=== PATIENT | female | born 1980 | race Caucasian/White ===

== ENCOUNTER 2016-10-16 03:18 | Inpatient (IN) | payer MEDICAID ==
[~2016-10-16] VITALS: Ht 162.6 cm; Wt 68.9 kg
--- NOTE | 2016-10-16 04:02 | NUR ---
PT PRESENTS TO ED WITH C/O EPIGASTRIC PAIN 03/11. PT STATES PAIN BEGAN AROUND 0100 THIS MORNING. PT REPORTS N/V, DENIES ANY DIARRHEA OR CONSTIPATION. PT REPORTS HX OF GALLSTONES X1 YR AGO. PT DENIES ANY FEVERS. RESPIRATIONS EVEN AND UNLABORED. NO ACUTE DISTRESS NOTED. BED IN LOW POSITION. CALL LIGHT WITHIN REACH.
[2016-10-16 04:12] LABS: BASOPHIL % 0.4 % (0-2); PLATELET COUNT 400 x10^3mcL (130-400); RED CELL DISTRIBUTION WIDTH 12.2 % (11.5-14.5)
--- NOTE | 2016-10-16 04:19 | NUR ---
PT UNABLE TO PROVIDE URINE SAMPLE AT THIS TIME.
[2016-10-16 04:28] LABS: ALBUMIN 3.9 g/dL (3.4-5.0); ALKALINE PHOSPHATASE 70 U/L (46-116); ALT/SGPT 22 U/L (14-59); AST/SGOT 16 U/L (15-37); BILIRUBIN TOTAL 0.36 mg/dL (0.20-1.00); CALCIUM 8.9 mg/dL (8.5-10.1); CARBON DIOXIDE 24.5 mmol/L (21-32); CHLORIDE SERUM 104 mmol/L (98-107); CREATININE SERUM 0.6 mg/dL (0.6-1.0); GFR1 > 60 mL/min; GLUCOSE SERUM 116 mg/dL (74-106); LIPASE 162 IU/L (73-393); SODIUM SERUM 138 mmol/L (136-145); TOTAL PROTEIN, SERUM 8.2 g/dL (6.4-8.2)
[2016-10-16 04:31] LABS: POTASSIUM SERUM 2.7 mmol/L (3.5-5.1)
--- NOTE | 2016-10-16 05:10 | NUR ---
PT C/O PAIN 03/11, NOTIFIED. WILL MEDICATE PER ORDERS.
[2016-10-16 05:55] LABS: T3 TOTAL 1.51 ng/mL
[2016-10-16 06:03] LABS: MAGNESIUM 1.6 mg/dL (1.8-2.4); PHOSPHOROUS 2.9 mg/dL (2.5-4.9)
[2016-10-16 06:06] LABS: FREE T4 1.37 ng/dL (0.76-1.46); FREE THYROXINE INDEX 3.3 ug/dL (1.4-4.5); T4(THYROXINE) 9.8 ug/dL (4.7-13.3)
[2016-10-16 06:08] LABS: CHOLESTEROL/HDL RATIO 3.2
[2016-10-16 06:47] VITALS: Ht 162.6 cm; Wt 68.9 kg
--- NOTE | 2016-10-16 06:51 | NUR ---
REPORT GIVEN TO ANITA LARRY.
--- NOTE | 2016-10-16 07:19 | NUR ---
RECEIVED FROM ER, TRANSPORTED VIA [facility]. AWAKE AND ALERT, ORIENTED TO NAME, PLACE, TIME AND SITUATION. SPEECH CLEAR AND APPROPRIATE. WALKED WITH STEADY GAIT INTO ROOM FROM HALLWAY. WITH IV FLAGYL FROM ER, ABOUT 40ML LEFT IN BAG. PLACED IN INFUSION PUMP, REGULATED AT 50ML/HR. ON TELE #31, SINUS RHYTHM, HR 65/MIN. VITAL SIGNS TAKEN. BP 120/74, NC 69, RR 18/MIN, O2 SAT 98% ON ROOM AIR, TEMP 97.5F, DENIES HAVING PAIN AT THIS TIME. HOB ELEVATED 30 DEG. ENDORSED TO NURSE GENA.
--- NOTE | 2016-10-16 07:30 | NUR ---
AAOX4 ABLE TO VERBALIZE NEEDS WITH CLEAR SPEECH, C/O N&V, ABD PAIN 3/10, ACTIVE BOWEL SOUNDS X4 QUADS, ABD ROUND, TENDER TO TOUCH, RECEIVED PAIN MED IN ER, WILL CONTINUE TO MONITOR CLOSELY FOR ADEQUATE PAIN CONTROL, IV AT LAC INFUSING NS AT 100ML/HR, IV AT RAC [place]PL[place], REORIENTED TO CALL LIGHT AND ROOM, WILL CONTINUE TO PROVIDE CARE.
[2016-10-16 09:48] VITALS: BP 120/74
[2016-10-16 10:15] VITALS: BP 120/74
--- NOTE | 2016-10-16 10:28 | NUR ---
REPORT GIVEN TO KAY RN IN OR, PT TRANSFERRED TO OR VIA [facility], CONSENTS AND CHECK LIST COMPLETED.
[2016-10-16 13:20] VITALS: BP 108/68
--- NOTE | 2016-10-16 13:23 | NUR ---
PT TRANSFERRED FROM OR VIA [facility] BY KAY LARRY, PT IS AWAKE AND ALERT, ABLE TO VERBALIZE NEEDS, ABLE TO TRANSFER FROM GURSALEM TO BED, C/O FEELING NAUSEUS, VOMITTED 150ML OF GREEN FLUID WITH PINK TINGED SALIVA, ASSISTED TO SAFE AND COMFORTABLE POSITION, CURRENT VS WNL, ABD SOFT, HYPOACTIVE, X4 SX INCISIONS COVERED WITH CLEAN AND DRY BANDAID, NO ACTIVE BLEEDING OR DRAINAGE NOTED, WILL ADMIN ANTIEMETIC ORDERED, CALL LIGHT WITHIN REACH, WILL CONTINUE TO PROVIDE CARE.
[2016-10-16 14:36] VITALS: BP 102/64
--- NOTE | 2016-10-16 16:58 | NUR ---
C/O VILLEGAS 10/09, ADMINISTERED PAIN MED ORDERED, REPORTS ABD PAIN 2/, CONTROLLED AT THIS TIME, CALL LIGHT WITHIN REACH.
--- NOTE | 2016-10-16 17:08 | NUR ---
LATE ENTRY FOR 1255: KAY RN REPORTS LAP JACKIE COMPLETED, PT RECEIVED 1G ANCEF, 100MG DEMEROL, 4MG ZOFRAN, 4 MG DECADRON, 850ML LR, 10ML EBL, X4 ABD SURGICAL INCISIONS WITH PATTIE COVERED WITH BANDAIDS, SITES ARE CLEAN AND DRY, NO ACTIVE BLEEDING NOTED, VITALS WNL, ABLE TO VERBALIZE NEEDS WITH COHERENT SPEECH.
[2016-10-16 17:50] VITALS: BP 106/68
--- NOTE | 2016-10-16 18:17 | NUR ---
CONTINUES TO FEEL NAUSEUS, UNABLE TO TOLERATE FULL LIQUID DIET, ZOFRAN ADMIN ORDERED, WILL NOTIFY DR MARTINEZ.
--- NOTE | 2016-10-16 18:46 | NUR ---
RESTING IN BED, UNABLE TO TOLERATE BROTH, CONTINUES TO HAVE N&V, REPORTS ABD PAIN IS CONTROLLED AT THIS TIME, C/O VILLEGAS, REQUESTED COFFEE, SX INCISIONS CLEAN AND DRY NO ACTIVE BLEEDING NOTED, IS AT BEDSIDE, REINSTRUCTED PT ON USING IT, WILL ENDORSE CARE TO NIGHT NURSE.
--- NOTE | 2016-10-16 19:33 | NUR ---
AWAKE AND VERBALLY RESPONSIVE. GREEK SPEAKING ONLY. SKIN WARM AND DRY TO TOUCH . ABDOMEN SOFT AND NON-TENDER WITH 4 SITES SURGICAL SITES COVERED WITH BANDAIDS. ASSSITED TO ABTHROOM FOR PERSONAL NEEDS. KEPT CLEAN AND DRY. DENIES ANY PAIN/DISCOMFORT AT THIS TIME.
[2016-10-16 20:16] VITALS: BP 94/57
--- NOTE | 2016-10-17 00:10 | NUR ---
EYES CLOSED, NO FACIAL GRIMACING NOTED. RESPIRATION EVEN AND UNLABORED. NO S/S OF PAIN/DISCOMFORT. WILL CONTINUE TO MONITOR.
--- NOTE | 2016-10-17 04:48 | NUR ---
ATB IVPB GIVEN ORDERED WITHOUT ADVERSE REACTION NOTED. TOLERATED FLUIDS ORALLY. DENIES ANY NAUSEA AT THIS TIME.
--- NOTE | 2016-10-17 05:42 | NUR ---
APPARENTLY COMFORTABLE AT THIS TIME. NO EPEISODES OF N/V NOTED . ALL NEEDS ATTENDED.
[2016-10-17 05:48] VITALS: BP 95/57
[2016-10-17 06:00] LABS: BASOPHIL % 0.2 % (0-2); PLATELET COUNT 350 x10^3mcL (130-400)
[2016-10-17 06:10] LABS: CALCIUM 7.8 mg/dL (8.5-10.1); CARBON DIOXIDE 25.5 mmol/L (21-32); CREATININE SERUM 0.5 mg/dL (0.6-1.0); GFR1 > 60 mL/min; GLUCOSE SERUM 110 mg/dL (74-106); MAGNESIUM 2.5 mg/dL (1.8-2.4); PHOSPHOROUS 2.6 mg/dL (2.5-4.9)
[2016-10-17 06:53] LABS: CHLORIDE SERUM 108 mmol/L (98-107); POTASSIUM SERUM 3.4 mmol/L (3.5-5.1); SODIUM SERUM 142 mmol/L (136-145)
--- NOTE | 2016-10-17 07:00 | NUR ---
RESTING IN BED AROUSABLE TO LIGHT NOISE, ABLE TO VERBALIZE NEEDS WITH CLEAR SPEECH, C/O ABD PAIN 2/10, CONTROLLED AT THIS TIME, UMBILICAL INCISION WITH SCANT AMOUNT OF SEROUSANGUIN DRAINAGE NOTED ON BANDAID, CLEANSED AREA WITH DRY GAUZE, COVERED WITH BANDAID, DENIES PASSING GAS, NO N&V AT THIS TIME, ABD SOFT, TENDER TO TOUCH, ACTIVE BOWEL SOUNDS, ON TELE #31 NSR ON MONITOR, DENIES ANY HEART RELATED PAIN OR DISCOMFORT, IV AT RAC INFUSING NS AT 100ML/HR, CALL LIGHT WITHIN REACH, WILL CONTINUE TO PROVIDE CARE.
--- NOTE | 2016-10-17 09:10 | NUR ---
ABLE TO TOLERATE BREAKFAST, DENIES N&V, ABD SOFT, TENDER TO TOUCH, CALL LIGHT WTIHIN REACH, WILL CONTINUE TO PROVIDE CARE.
[2016-10-17 10:32] VITALS: BP 94/59
--- NOTE | 2016-10-17 13:14 | NUR ---
DR MARTINEZ AT BEDSIDE TO PROVIDE MUSCLE/NERVE STIMULATION THERAPY.
[2016-10-17 13:44] VITALS: BP 99/66
[2016-10-17 17:50] VITALS: BP 99/64
--- NOTE | 2016-10-17 19:18 | NUR ---
PT REPORTS BENEFITS FROM [facility] INTERVENTION, HAS BEEN ABLE TO TOLERATE FULL LIQUID AND REG DIET, NO N&V EPISODES THROUGHOUT SHIFT, ABD SOFT, TENDER TO TOUCH, ACTIVE BOWEL SOUNDS, + FLATUS, SX SITES CLEAN AND DRY, NO ACTIVE BLEEDING NOTED, NO OTHER SIGNIFICANT CHANGES NOTED, CARE ENDORSED TO HARJIT LARRY.
--- NOTE | 2016-10-17 20:12 | NUR ---
AWAKE AND VERBALLY RESPONSIVE. SKIN WARM AND DRY TO TOUCH. ABDOMEN SOFT AND NON-TENDER WITH SURGICAL INCISSION COVERED WITH BANDAIDS S/P LAP JACKIE. NO BLEEDING NOTED. CLAIMED PAIN IS BEARABLE, NO NEED FOR MEDICATIONA T THIS TIME. WILL CONTINUE TO MONITOR.
[2016-10-17 22:00] VITALS: BP 101/70
--- NOTE | 2016-10-18 00:01 | NUR ---
EYES CLSOED, NO FACIAL GRIMACING NOTED. RESPIRATION EVEN AND UNLABORED. NO S/S OF PAIN/DISCOMFORT. RESPOSITIONED SELF IN BED. WILL CONTINUE TO MONITOR.
--- NOTE | 2016-10-18 06:17 | NUR ---
IV SITE AT THE RAC LEAKING, IVF CONNECTED TO PERIPHERAL LINE AT THE LAC TOLERATING WELL. AMBULATED TO BATHROOM FOR PWESONAL NEEDS. KEPT CLEAN AND DRY. ALL NEEDS ATTENDED.
[2016-10-18 06:28] VITALS: BP 106/67
[2016-10-18 06:44] LABS: BASOPHIL % 0.3 % (0-2); PLATELET COUNT 347 x10^3mcL (130-400); RED CELL DISTRIBUTION WIDTH 12.5 % (11.5-14.5)
[2016-10-18 07:57] LABS: CALCIUM 7.7 mg/dL (8.5-10.1); CARBON DIOXIDE 25.3 mmol/L (21-32); CHLORIDE SERUM 111 mmol/L (98-107); CREATININE SERUM 0.5 mg/dL (0.6-1.0); GFR1 > 60 mL/min; GLUCOSE SERUM 99 mg/dL (74-106); POTASSIUM SERUM 3.8 mmol/L (3.5-5.1); SODIUM SERUM 146 mmol/L (136-145)
--- NOTE | 2016-10-18 08:00 | NUR ---
AWAKE,ALERT AND ORIENTED. DENIES ANY PAIN AT THIS TIME. S/P CHOLECYSTECTOMY 10/16/16 ABD. BAND AID X 4 CDI. ENCOURAGE AMBULATION AND EVELIA. WELL. PASSING FLATUS. DENIES ANY ABD. DISCOMFORT.CONT,IV FLUIDS ORDERED.WILL CONT. PLAN OF CARE.
--- NOTE | 2016-10-18 08:30 | NUR ---
DR. BAILEY Barnes/ OTHER MEDICAL STAFF MADE ROUNDS AND UPDATED PT. PLAN OF CARE.
[2016-10-18 09:10] VITALS: BP 106/70
[2016-10-18] MEDS ORDERED: MOT800 PO (14:50)
[2016-10-18] MEDS ORDERED: LIPI10 PO (14:50)
[2016-10-18] MEDS ORDERED: COL100 PO (14:51)
[2016-10-18] MEDS ORDERED: NORCO1 TA2 PO (14:51)
[2016-10-18 15:15] VITALS: BP 106/70
--- NOTE | 2016-10-18 16:31 | NUR ---
PT. WENT HOME WITH STABLE CONDITION PER W/C ACC. W/ HER DISCHARGED INSTRUCTIONS AND PRESCRIPTIONS GIVEN AND DISCUSSED TO PT. AND VERBALIZED UNDERSTANDING OF INSTRUCTIONS GIVEN NO ACUTE DISTRESS NOTED. ESCORTED BY SUN IN THE LOBBY.
== END 2016-10-18 16:30 | disposition home or self-care (01) | DRG 263 ==
LOC: ED 03:18 → DU 05:23
PROVIDERS: Emergency Medicine; Family Medicine; Surgery; ADMIT Family Medicine
PROC: 8E0W4CZ Robotic Assisted Procedure of Trunk Region, Percutaneous Endoscopic Approach (ICD-10-PCS; principal; 2016-10-16 10:15)
PROC: 0FT44ZZ Resection of Gallbladder, Percutaneous Endoscopic Approach (ICD-10-PCS; principal; 2016-10-16 10:15)
DX: K80.00 Calculus of gallbladder with acute cholecystitis without obstruction (principal); E83.42 Hypomagnesemia; E87.6 Hypokalemia; E78.5 Hyperlipidemia, unspecified; D64.9 Anemia, unspecified
CPT/HCPCS: 47562; S2900; 80307; 83880; 84439; 94150; J0690; J0696; J1170; J1885; J2175; J2250; J2270; J2405; J3010; J3475; J3480; J3490; J7030; Q0092

== ENCOUNTER 2019-06-15 17:43 | Emergency (ER) | payer MEDICAID ==
[~2019-06-15] VITALS: Ht 149.9 cm; Wt 73.0 kg
[~2019-06-15 17:43] MED LIST: COL100 PO; LIPI10 PO; MOT800 PO; NORCO1 TA2 PO
[2019-06-15 18:21] VITALS: Ht 149.9 cm; Wt 73.0 kg
[2019-06-15 20:00] VITALS: BP 119/71
== END 2019-06-15 20:00 | disposition home or self-care (01) ==
LOC: ED 17:43 → EDBD 17:43 → ED 20:00
DX: J11.1 Influenza due to unidentified influenza virus with other respiratory manifestations (principal); R51 Headache
CPT/HCPCS: 87804; J1885